=== PATIENT | male | born 1965 | race Caucasian/White ===

== ENCOUNTER 2018-05-10 09:14 | Emergency (ER) | payer OTHER ==
[2018-05-10] MEDS ORDERED: KETOROLAC 30 MG/ML INJ ONE (10:12)
[2018-05-10 10:33] LABS: Absolute Lymphocytes (CBC) 2.3 K/uL (0.7-4.9); Absolute Monocytes 0.4 K/uL (0.1-1.3); Absolute Neutrophil 6.7 K/uL (1.8-8.0); Basophils % 0.8 % (0-1.3); Eosinophils % 0.8 % (0-4.4); Hematocrit 44.2 % (39.6-49.0); Lymphocytes % 23.9 % (15.3-44.8); MCH 31.4 pg (27.0-35.0); MCV 88.6 fL (80-100); MPV 8.8 fL (7.6-11.3); Monocytes % 4.4 % (3.3-12.3); RBC Red Blood Cell Count 4.99 M/uL (4.33-5.43)
[2018-05-10 10:35] LABS: Urine Blood 3+ (NEG); Urine Glucose NEGATIVE (NEG); Urine Protein 2+ (NEG)
[2018-05-10 10:37] LABS: Albumin 3.9 g/dL (3.4-5.0); Bilirubin Direct 0.2 mg/dL (0-0.2); Bilirubin Total 0.5 mg/dL (0.2-1.0); Potassium 3.5 mmol/L (3.5-5.1); Protein, Total 7.3 g/dL (6.4-8.2)
--- NOTE | 2018-05-10 11:00 | RAD REPORT ---
EXAM DESCRIPTION: CT - Stone Protocol - 05/10/2018 10:43 am CLINICAL HISTORY: Abdominal pain. With nausea COMPARISON: None. TECHNIQUE: Computed axial tomography of the abdomen pelvis was obtained without oral or IV contrast. Lack of IV and oral contrast limits evaluation of solid organs, bowel, and vessels. Coronal reformat lopez images were obtained and reviewed. All CT scans are performed using dose optimization technique as appropriate and may include automated exposure control or mA/KV adjustment according to patient size. FINDINGS: Couple of tiny right renal calculi are present. A left renal calculus is not seen. Mild ri ght hydronephrosis is present. A calculus is present within the distal right ureter measuring 3 adam meters. The liver, spleen, pancreas and adrenals appear grossly normal There is no evidence of diverticulitis. The appendix appears normal Small umbilical hernia is seen. A small right inguinal hernia is present. IMPRESSION: 3 millimeter calculus distal right ureter resulting in mild right hydronephrosis
--- NOTE | 2018-05-10 11:30 | ER ---
Nurse's Notes [facility] Name: Aldo Gill Age: 53 yrs Sex: Male : 1965 Arrival Date: 05/10/2018 Time: 09:17 Bed 13 Private MD: Rick Montero Diagnosis: Hydronephrosis with renal and ureteral calculous obstruction;Renal calculus Presentation: 05/10 09:46 Presenting complaint: Patient states: pain started around 0530 this morning and has dm5 gotten worse. Pt reports nausea. Transition of care: patient was not received from another setting of care. Onset of symptoms was May 10, 2018. 09:46 Method Of Arrival: Ambulatory dm5 09:46 Acuity: RAQUEL 3 dm5 11:52 Risk Assessment: Do you want to hurt yourself or someone else? Patient reports no aj1 desire to harm self or others. Historical: - Allergies: 09:47 No Known Allergies; dm5 - Home Meds: 09:47 lisinopril 20 mg oral tab [Active]; dm5 - Ebola Screening: : Patient denies travel to an Ebola-affected area in the 21 days before illness onset. Screenin:00 Abuse screen: Denies threats or abuse. Denies injuries from another. Nutritional aj1 screening: No deficits noted. Tuberculosis screening: No symptoms or risk factors identified. Assessment: 10:00 General: Appears in no apparent distress. uncomfortable, Behavior is cooperative, aj1 restless. Pain: Complains of pain in right low back and right lower quadrant Pain currently is 10 out of 10 on a pain scale. Quality of pain is described as sharp. Neuro: Level of Consciousness is awake, alert, obeys commands. Cardiovascular: Patient's skin is warm and dry. Respiratory: Airway is patent Respiratory effort is even, unlabored, Respiratory pattern is regular, symmetrical. GI: Reports lower abdominal pain, nausea, Patient currently denies diarrhea, vomiting. : Reports burning with urination, inability to void, urinary frequency. EENT: No signs and/or symptoms were reported regarding the EENT system. Derm: Skin is intact, Skin is diaphoretic, Skin is pale. Musculoskeletal: No signs and/or symptoms reported regarding the musculoskeletal system. Circulation, motion, and sensation intact. Vital Signs: 09:47 BP 163 / 94; Pulse 50; Resp 20; Temp 97.1; Pulse Ox 100% on R/A; Weight 106.59 kg; dm5 Height 5 ft. 10 in. (177.80 cm); Pain 05/09; 09:47 Body Mass Index 33.72 (106.59 kg, 177.80 cm) dm5 ED Course: 09:17 Patient arrived in ED. as 09:18 Rick Montero MD is Private Physician. as 09:46 Triage completed. dm5 09:47 Arm band placed on left wrist. Patient placed in an exam room. dm5 09:56 Zuri Galvez, RN is Primary Nurse. aj1 10:00 Patient has correct armband on for positive identification. Bed in low position. Call aj1 light in reach. Side rails up X 1. 10:00 Notified ED physician of other patient complains of severe pain. Order received. aj1 10:00 No provider procedures requiring assistance completed. aj1 10:01 Foster Macias MD is Attending Physician. kdr 10:02 Inserted saline lock: 20 gauge in right forearm, using aseptic technique. Blood em1 collected. 10:30 X-ray completed. Portable x-ray completed in exam room. Patient tolerated procedure ml well. 10:41 CT completed. Patient tolerated procedure well. Patient moved to CT via wheelchair. Patient moved back from CT. 10:43 CT Stone Protocol In Process Unspecified. EDMS 11:27 Rick Montero MD is Referral Physician. kdr 11:28 Donnell Ng MD is Referral Physician. kdr 11:52 IV discontinued, intact, bleeding controlled, No redness/swelling at site. Pressure aj1 dressing applied. Administered Medications: 10:10 Drug: TORadol 30 mg Route: IVP; Site: right forearm; aj1 11:44 Follow up: Response: No adverse reaction aj1 11:33 Drug: Rocephin - (cefTRIAXone) 1 grams Route: IVPB; Infused Over: 30 mins; Site: right aj1 antecubital; 11:44 Follow up: IV Status: Completed infusion aj1 11:37 Drug: Floral 10 mg-325 mg 1 tabs Route: PO; aj1 11:44 Follow up: Response: No adverse reaction aj1 Outcome: 11:29 Discharge ordered by . kdr 11:52 Discharged to home ambulatory, with family. aj1 11:52 Condition: good 11:52 Discharge instructions given to patient, Instructed on discharge instructions, follow up and referral plans. no drinking with medication, no driving heavy equipment, medication usage, Demonstrated understanding of instructions, follow-up care, medications. 11:53 Patient left the ED. aj1 Signatures: Dispatcher [employer] EDMS Zuri Galvez RN RN aj1 Patricia Mckee RN RN dm5 Foster Macias MD MD kdr Jones, Aicha Rowell, Nancie Hill, Tiffany Rowell, Babak sahu
--- NOTE | 2018-05-10 11:30 | EDPHYS ---
Physician Documentation [facility] Name: Aldo Gill Age: 53 yrs Sex: Male : 1965 Arrival Date: 05/10/2018 Time: 09:17 Bed 13 Private MD: Rick Montero ED Physician Foster Macias HPI: 05/10 16:31 This 53 yrs old Male presents to ER via Ambulatory with complaints of Low kdr Back Pain, Urinary Problem. 16:31 The patient complains of pain in the right mid back. To right groin. Onset: The kdr symptoms/episode began/occurred suddenly, at 05:30. Modifying factors: The symptoms are alleviated by nothing. the symptoms are aggravated by movement, palpation/percussion. Associated signs and symptoms: Pertinent positives: hematuria, nausea, vomiting, Pertinent negatives: diarrhea, dizziness, dysuria, fever, urinary frequency. Severity of pain: At its worst the pain was severe incapacitating just prior to arrival, in the emergency department the pain has improved mildly. The patient has not experienced similar symptoms in the past. The patient has not recently seen a physician. Historical: - Allergies: 09:47 No Known Allergies; dm5 - Home Meds: 09:47 lisinopril 20 mg oral tab [Active]; dm5 - Ebola Screening: : Patient denies travel to an Ebola-affected area in the 21 days before illness onset. ROS: 16:31 Constitutional: Negative for fever, chills, and weight loss, Eyes: Negative for injury, kdr pain, redness, and discharge, ENT: Negative for injury, pain, and discharge, Neck: Negative for injury, pain, and swelling, Cardiovascular: Negative for chest pain, palpitations, and edema, Respiratory: Negative for shortness of breath, cough, wheezing, and pleuritic chest pain, Back: Negative for injury and pain, MS/Extremity: Negative for injury and deformity, Skin: Negative for injury, rash, and discoloration, Neuro: Negative for headache, weakness, numbness, tingling, and seizure activity. Psych: Negative for depression, anxiety, suicide ideation, homicidal ideation, and hallucinations, Allergy/Immunology: Negative for hives, rash, and allergies, Endocrine: Negative for neck swelling, polydipsia, polyuria, polyphagia, and marked weight changes, Hematologic/Lymphatic: Negative for swollen nodes, abnormal bleeding, and unusual bruising. 16:31 Abdomen/GI: Positive for abdominal pain, nausea and vomiting, Negative for 16:31 : Positive for urinary symptoms, Negative for Exam: 16:31 Constitutional: This is a well developed, well nourished patient who is awake, alert, kdr and in no acute distress. Head/Face: Normocephalic, atraumatic. Eyes: Pupils equal round and reactive to light, extra-ocular motions intact. Lids and lashes normal. Conjunctiva and sclera are non-icteric and not injected. Cornea within normal limits. Periorbital areas with no swelling, redness, or edema. Neck: Trachea midline, no thyromegaly or masses palpated, and no cervical lymphadenopathy. Supple, full range of motion without nuchal rigidity, or vertebral point tenderness. No Meningismus. Chest/axilla: Normal chest wall appearance and motion. Nontender with no deformity. No lesions are appreciated. Cardiovascular: Regular rate and rhythm with a normal S1 and S2. No gallops, murmurs, or rubs. Normal PMI, no JVD. No pulse deficits. Respiratory: Lungs have equal breath sounds bilaterally, clear to auscultation and percussion. No rales, rhonchi or wheezes noted. No increased work of breathing, no retractions or nasal flaring. Abdomen/GI: Soft, non-tender, with normal bowel sounds. No distension or tympany. No guarding or rebound. No evidence of tenderness throughout. Skin: Warm, dry with normal turgor. Normal color with no rashes, no lesions, and no evidence of cellulitis. MS/ Extremity: Pulses equal, no cyanosis. Neurovascular intact. Full, normal range of motion. Neuro: Awake and alert, GCS 15, oriented to person, place, time, and situation. Cranial nerves II-XII grossly intact. Motor strength 5/5 in all extremities. Sensory grossly intact. Cerebellar exam normal. Normal gait. Psych: Awake, alert, with orientation to person, place and time. Behavior, mood, and affect are within normal limits. 16:31 Back: pain, that is moderate, that is severe, of the right mid back, ROM is normal, CVA tenderness, that is severe, is noted on the right. Vital Signs: 09:47 BP 163 / 94; Pulse 50; Resp 20; Temp 97.1; Pulse Ox 100% on R/A; Weight 106.59 kg; dm5 Height 5 ft. 10 in. (177.80 cm); Pain 05/09; 09:47 Body Mass Index 33.72 (106.59 kg, 177.80 cm) dm5 MDM: 11:29 Patient medically screened. kdr 16:31 Data reviewed: vital signs, nurses notes, lab test result(s), radiologic studies. kdr Counseling: I had a detailed discussion with the patient and/or guardian regarding: the historical points, exam findings, and any diagnostic results supporting the discharge/admit diagnosis, lab results, radiology results, the need for outpatient follow up. 05/10 10:03 Order name: Urine Dipstick--Ancillary (enter results); Complete Time: 10:52 em1 05/10 10:07 Order name: Basic Metabolic Panel; Complete Time: 10:52 kdr 05/10 10:07 Order name: CBC with Diff; Complete Time: 10:52 kdr 05/10 10:07 Order name: Creatinine for Radiology; Complete Time: 10:52 kdr 05/10 10:07 Order name: Hepatic Function; Complete Time: 10:52 kdr 05/10 10:07 Order name: Lipase; Complete Time: 10:52 kdr 05/10 09:48 Order name: CT Stone Protocol; Complete Time: 11:22 dm5 05/10 10:03 Order name: Urine Dipstick-Ancillary (obtain specimen); Complete Time: 10:03 em1 05/10 10:07 Order name: IV Saline Lock; Complete Time: 10:09 kdr 05/10 10:07 Order name: Labs collected and sent; Complete Time: 10:27 kdr Administered Medications: 10:10 Drug: TORadol 30 mg Route: IVP; Site: right forearm; aj1 11:44 Follow up: Response: No adverse reaction aj1 11:33 Drug: Rocephin - (cefTRIAXone) 1 grams Route: IVPB; Infused Over: 30 mins; Site: right aj1 antecubital; 11:44 Follow up: IV Status: Completed infusion aj1 11:37 Drug: Lewis 10 mg-325 mg 1 tabs Route: PO; aj1 11:44 Follow up: Response: No adverse reaction aj1 Disposition: 05/10/18 11:29 Discharged to Home. Impression: Hydronephrosis with renal and ureteral calculous obstruction, Renal calculus. - Condition is Stable. - Discharge Instructions: Kidney Stones, [id number], Hydronephrosis. - Prescriptions for Tylenol- Codeine #3 300-30 mg Oral Tablet - take 2 tablets by ORAL route every 6 hours As needed; 15 tablet. Zofran 4 mg Oral Tablet - take 1 tablet by ORAL route every 12 hours As needed; 6 tablet. Flomax 0.4 mg Oral Capsule, Sust. Release 24 hr - take 1 capsule by ORAL route once daily 1/2 hour following the same meal each day; 15 capsule. Bactrim DS 800- 160 mg Oral Tablet - take 1 tablet by ORAL route every 12 hours for 3 days; 6 tablet. - Medication Reconciliation Form, Thank You Letter, Antibiotic Education, Prescription Opioid Use form. - Follow up: Rick Montero MD; When: 2 - 3 days; Reason: If symptoms return, Further diagnostic work-up, Recheck today's complaints, Continuance of care, Re-evaluation by your physician. Follow up: Donnell Ng MD; When: 1 - 2 days; Reason: If symptoms return, Further diagnostic work-up, Recheck today's complaints, Continuance of care, Re-evaluation by your physician. - Problem is new. - Symptoms have improved. Signatures: Dispatcher [employer] EDMS Zuri Galvez RN RN aj1 Patricia Mckee RN RN dm5 Foster Macias MD MD [facility] Babak Rowell1 Corrections: (The following items were deleted from the chart) 11:53 11:29 05/10/2018 11:29 Discharged to Home. Impression: Hydronephrosis with renal and aj1 ureteral calculous obstruction; Renal calculus. Condition is Stable. Forms are Medication Reconciliation Form, Thank You Letter, Antibiotic Education, Prescription Opioid Use. Follow up: Rick Montero; When: 2 - 3 days; Reason: If symptoms return, Further diagnostic work-up, Recheck today's complaints, Continuance of care, Re-evaluation by your physician. Follow up: Donnell Ng; When: 1 - 2 days; Reason: If symptoms return, Further diagnostic work-up, Recheck today's complaints, Continuance of care, Re-evaluation by your physician. Problem is new. Symptoms have improved. kdr
[2018-05-10] MEDS ORDERED: HYDROCODONE/APAP 10/325 TAB ONE (11:42)
== END 2018-05-10 11:53 | disposition home or self-care (01) ==
LOC: ER 09:14
DX: N13.2 Hydronephrosis with renal and ureteral calculous obstruction (principal)
CPT/HCPCS: 36415; 74176; 76377; 80048; 80076; 81003; 83690; 85025; 99284

== ENCOUNTER 2018-05-13 14:05 | Emergency (ER) | payer OTHER ==
[2018-05-13] MEDS ORDERED: MORPHINE 4 MG/ML SYR ONE (15:02)
[2018-05-13] MEDS ORDERED: NA CHLORIDE 0.9% 1,000 ML ONE (15:03)
[2018-05-13] MEDS ORDERED: ONDANSETRON 4 MG/2 ML VIAL ONE (15:03)
[2018-05-13 15:35] LABS: Absolute Lymphocytes (CBC) 1.5 K/uL (0.7-4.9); Absolute Monocytes 0.9 K/uL (0.1-1.3); Absolute Neutrophil 10.8 K/uL (1.8-8.0); Basophils % 0.5 % (0-1.3); Eosinophils % 0.1 % (0-4.4); Hematocrit 42.6 % (39.6-49.0); Lymphocytes % 11.1 % (15.3-44.8); MCH 30.7 pg (27.0-35.0); MCV 87.5 fL (80-100); MPV 8.6 fL (7.6-11.3); Monocytes % 6.8 % (3.3-12.3); RBC Red Blood Cell Count 4.86 M/uL (4.33-5.43)
--- NOTE | 2018-05-13 15:41 | RAD REPORT ---
EXAM DESCRIPTION: CT - Stone Protocol - 05/13/2018 3:19 pm CLINICAL HISTORY: Flank pain. FLANK PAIN COMPARISON: Stone Protocol dated 05/10/2018 TECHNIQUE: Axial images were obtained without oral or IV contrast. Lack of contrast limits solid org an and vascular assessment. The [id number] spans the entirety of the system partially obscuring uppermost abdomen and lung bases. Coronal reformatted images were obtained and reviewed. All CT scans are performed using dose optimization technique as appropriate and may include automated exposure control or mA/KV adjustment according to patient size. FINDINGS: The lower lung ko are clear. Tiny gallstone suspected. Imaged portions of the liver and spleen show no suspicious findings on non-contrast imaging. The panc reas and adrenal glands are normal. No pathologic lymphadenopathy in the abdomen or pelvis. 3 mm distal right ureter stone is again noted and has migrated to the right UVJ. Mild right hydroneph rosis persists. No bowel obstruction, free air, free fluid or abscess. Normal appendix noted. No significant bony abnormality. IMPRESSION: 3 mm distal right ureter stone has migrated to the right UVJ. Mild right hydronephrosis persists. Cholelithiasis.
[2018-05-13 15:47] LABS: Potassium 3.9 mmol/L (3.5-5.1)
[2018-05-13] MEDS ORDERED: KETOROLAC 30 MG/ML INJ ONE (16:04)
[2018-05-13] MEDS ORDERED: MAGNESIUM SULFATE 1 gm IVPB 1 GM/100 ML BAG IV ONE (16:08)
--- NOTE | 2018-05-13 16:38 | ER ---
Nurse's Notes [facility] Name: Aldo Gill Age: 53 yrs Sex: Male : 1965 Arrival Date: 05/13/2018 Time: 14:08 Bed 14 Private MD: Diagnosis: Calculus of kidney and ureter Presentation: 05/13 14:23 Presenting complaint: Patient states: 4 days ago, i was here and was diagnosed with hj kidney stones, they said it was 3mm but i havent noticed i passed it; now the pain is worse and the pain meds doesn't help; reports nausea;. Transition of care: patient was not received from another setting of care. Onset of symptoms was May 13, 2018. Risk Assessment: Do you want to hurt yourself or someone else? Patient reports no desire to harm self or others. Initial Sepsis Screen: Does the patient meet any 2 criteria? No. Patient's initial sepsis screen is negative. Does the patient have a suspected source of infection? No. Patient's initial sepsis screen is negative. Care prior to arrival: None. 14:23 Method Of Arrival: Ambulatory 14:23 Acuity: RAQUEL 3 hj Triage Assessment: 14:25 General: Appears in no apparent distress. uncomfortable, Behavior is calm, cooperative, hj appropriate for age. Pain: Complains of pain in R lower back. GI: Reports lower abdominal pain, nausea. Historical: - Allergies: 14:26 No Known Allergies; hj - Home Meds: 14:26 lisinopril 20 mg Oral tab [Active]; hj - PMHx: 14:26 Hypertension; hj - PSHx: 14:26 testicles; hj - Immunization history:: Adult Immunizations up to date. - Social history:: Smoking status: Patient/guardian denies using tobacco, Patient/guardian denies using alcohol. - Ebola Screening: : Patient negative for fever greater than or equal to 101.5 degrees Fahrenheit, and additional compatible Ebola Virus Disease symptoms Patient denies exposure to infectious person Patient denies travel to an Ebola-affected area in the 21 days before illness onset. Screenin:25 Abuse screen: Denies threats or abuse. Denies injuries from another. Nutritional hj screening: No deficits noted. Tuberculosis screening: No symptoms or risk factors identified. Fall Risk None identified. Assessment: 14:25 GI: Bowel sounds present X 4 quads. hj 15:09 General: Appears uncomfortable, Behavior is calm, cooperative. Pain: Complains of pain la1 in abdomen. Neuro: Level of Consciousness is awake, alert, obeys commands, Oriented to person, place, time, situation. Cardiovascular: Heart tones S1 S2 Capillary refill < 3 seconds Patient's skin is warm and dry. Respiratory: Airway is patent Respiratory effort is even, unlabored, Respiratory pattern is regular, symmetrical. GI: Reports nausea. : No signs and/or symptoms were reported regarding the genitourinary system. Vital Signs: 14:26 BP 145 / 104; Pulse 82; Resp 18; Temp 99.3(O); Pulse Ox 98% on R/A; Weight 106.59 kg; hj Height 5 ft. 9 in. (175.26 cm); 16:15 BP 136 / 86; Pulse 81; Resp 16; Pulse Ox 98% on R/A; la1 14:26 Body Mass Index 34.70 (106.59 kg, 175.26 cm) ED Course: 14:08 Patient arrived in ED. mr 14:25 Triage completed. hj 14:25 Arm band placed on left wrist. hj 14:26 Patient has correct armband on for positive identification. Placed in gown. Bed in low hj position. Call light in reach. Side rails up X 1. Adult w/ patient. 14:29 Ashley Hilliard FNP-C is PHCP. kb 14:29 Xavier Main MD is Attending Physician. kb 14:33 Ken Rivero RN is Primary Nurse. la1 15:10 Initial lab(s) drawn, by me, sent to lab. Inserted saline lock: 20 gauge in right upper sg arm, using aseptic technique. Blood collected. 15:18 CT completed. Patient tolerated procedure well. Patient moved to CT via wheelchair. kw1 Patient moved back from CT. 15:19 Stone Protocol In Process Unspecified. EDMS 16:47 No provider procedures requiring assistance completed. IV discontinued, intact, la1 bleeding controlled, No redness/swelling at site. Pressure dressing applied. Administered Medications: 15:11 Drug: Zofran 4 mg Route: IVP; Site: right antecubital; sg 16:47 Follow up: Response: No adverse reaction la1 15:11 Drug: NS 0.9% 1000 ml Route: IV; Rate: 1000 ml; Site: right antecubital; sg 16:48 Follow up: IV Status: Completed infusion la1 15:15 Drug: morphine 4 mg Route: IVP; Site: right upper arm; sg 16:47 Follow up: Response: No adverse reaction; Pain is decreased la1 16:00 Drug: TORadol 30 mg Route: IVP; Site: right antecubital; la1 16:46 Follow up: Response: No adverse reaction; Pain is decreased la1 16:04 Drug: Magnesium Sulfate 1 grams Route: IVPB; Infused Over: 30 mins; Site: right la1 antecubital; 16:47 Follow up: IV Status: Completed infusion la1 Outcome: 16:38 Discharge ordered by . holli 16:47 Discharged to home ambulatory. la1 16:47 Condition: stable 16:47 Discharge instructions given to patient, Instructed on discharge instructions, follow up and referral plans. medication usage, Demonstrated understanding of instructions, follow-up care, medications, Prescriptions given X 1. 16:48 Patient left the ED. la1 Signatures: Dispatcher [employer] EDMS Ashley Hilliard, [employer]ITE INSPECTOR-C BAKED AND GRAPHITE INSPECTOR-CkGeorge Calle, RN RN LouisJanelle mr Ken Rivero RN RN laVasiliy Perkins, ED WARD Caroline Morrison1 Corrections: (The following items were deleted from the chart) 14:28 14:26 Pulse 82bpm; Resp 18bpm; Pulse Ox 98% RA; Temp 99.3F Oral; 106.59 kg; Height 5 hj ft. 9 in.; BMI: 34.7; hj
--- NOTE | 2018-05-13 16:38 | EDPHYS ---
Physician Documentation [facility] Name: Aldo Gill Age: 53 yrs Sex: Male : 1965 Arrival Date: 05/13/2018 Time: 14:08 Bed 14 Private MD: ED Physician Xavier Main HPI: 05/13 16:36 This 53 yrs old Male presents to ER via Ambulatory with complaints of kb Possible Kidney Stone. 16:36 The patient complains of pain in the right flank. The pain radiates to the abdomen. kb 16:36 Onset: The symptoms/episode began/occurred yesterday. Modifying factors: The symptoms kb are alleviated by nothing. the symptoms are aggravated by palpation/percussion. Associated signs and symptoms: The patient has no apparent associated signs or symptoms. Severity of pain: At its worst the pain was severe in the emergency department the pain is unchanged. The patient has not experienced similar symptoms in the past. The patient has been recently seen at the [facility] Emergency Department, this week, for similar complaints labs were performed, CT scan was performed, was given a prescription for antibiotics, was given a prescription for pain medications, was given a prescription for an antiemetic. Pt reports he was diagnosed with a kidney stone 4 days ago, pain went away for a day, then came back yesterday. Pain worse today. Historical: - Allergies: 14:26 No Known Allergies; hj - Home Meds: 14:26 lisinopril 20 mg Oral tab [Active]; hj - PMHx: 14:26 Hypertension; hj - PSHx: 14:26 testicles; hj - Immunization history:: Adult Immunizations up to date. - Social history:: Smoking status: Patient/guardian denies using tobacco, Patient/guardian denies using alcohol. - Ebola Screening: : Patient negative for fever greater than or equal to 101.5 degrees Fahrenheit, and additional compatible Ebola Virus Disease symptoms Patient denies exposure to infectious person Patient denies travel to an Ebola-affected area in the 21 days before illness onset. ROS: 16:35 Constitutional: Negative for fever, chills, and weight loss, Cardiovascular: Negative kb for chest pain, palpitations, and edema, Respiratory: Negative for shortness of breath, cough, wheezing, and pleuritic chest pain, Abdomen/GI: Negative for abdominal pain, nausea, vomiting, diarrhea, and constipation, MS/Extremity: Negative for injury and deformity, Skin: Negative for injury, rash, and discoloration, Neuro: Negative for headache, weakness, numbness, tingling, and seizure. 16:35 : Positive for flank pain. Exam: 16:35 Constitutional: This is a well developed, well nourished patient who is awake, alert, kb and in no acute distress. Head/Face: Normocephalic, atraumatic. Chest/axilla: Normal chest wall appearance and motion. Nontender with no deformity. No lesions are appreciated. Cardiovascular: Regular rate and rhythm with a normal S1 and S2. No gallops, murmurs, or rubs. Normal PMI, no JVD. No pulse deficits. Respiratory: Lungs have equal breath sounds bilaterally, clear to auscultation and percussion. No rales, rhonchi or wheezes noted. No increased work of breathing, no retractions or nasal flaring. Abdomen/GI: Soft, non-tender, with normal bowel sounds. No distension or tympany. No guarding or rebound. No evidence of tenderness throughout. Skin: Warm, dry with normal turgor. Normal color with no rashes, no lesions, and no evidence of cellulitis. MS/ Extremity: Pulses equal, no cyanosis. Neurovascular intact. Full, normal range of motion. Neuro: Awake and alert, GCS 15, oriented to person, place, time, and situation. Cranial nerves II-XII grossly intact. Motor strength 5/5 in all extremities. Sensory grossly intact. Cerebellar exam normal. Normal gait. 16:35 Back: CVA tenderness, that is moderate, is noted on the right. Vital Signs: 14:26 BP 145 / 104; Pulse 82; Resp 18; Temp 99.3(O); Pulse Ox 98% on R/A; Weight 106.59 kg; hj Height 5 ft. 9 in. (175.26 cm); 16:15 BP 136 / 86; Pulse 81; Resp 16; Pulse Ox 98% on R/A; la1 14:26 Body Mass Index 34.70 (106.59 kg, 175.26 cm) MDM: 14:29 Patient medically screened. 16:34 Data reviewed: vital signs, nurses notes. Data interpreted: Pulse oximetry: on room air kb is 98 %. Interpretation: normal. Counseling: I had a detailed discussion with the patient and/or guardian regarding: the historical points, exam findings, and any diagnostic results supporting the discharge/admit diagnosis, lab results, radiology results, the need for outpatient follow up, a urologist, to return to the emergency department if symptoms worsen or persist or if there are any questions or concerns that arise at home. 05/13 14:47 Order name: CBC with Diff kb 05/13 14:47 Order name: Basic Metabolic Panel kb 05/13 15:02 Order name: Stone Protocol; Complete Time: 15:58 EDMS 05/13 15:14 Order name: CBC with Automated Diff; Complete Time: 15:39 EDMS 05/13 15:14 Order name: Basic Metabolic Panel; Complete Time: 15:58 EDMS 05/13 14:47 Order name: IV Saline Lock; Complete Time: 15:16 kb 05/13 14:47 Order name: Labs collected and sent; Complete Time: 15:16 kb Administered Medications: 15:11 Drug: Zofran 4 mg Route: IVP; Site: right antecubital; sg 16:47 Follow up: Response: No adverse reaction la1 15:11 Drug: NS 0.9% 1000 ml Route: IV; Rate: 1000 ml; Site: right antecubital; sg 16:48 Follow up: IV Status: Completed infusion la1 15:15 Drug: morphine 4 mg Route: IVP; Site: right upper arm; sg 16:47 Follow up: Response: No adverse reaction; Pain is decreased la1 16:00 Drug: TORadol 30 mg Route: IVP; Site: right antecubital; la1 16:46 Follow up: Response: No adverse reaction; Pain is decreased la1 16:04 Drug: Magnesium Sulfate 1 grams Route: IVPB; Infused Over: 30 mins; Site: right la1 antecubital; 16:47 Follow up: IV Status: Completed infusion la1 Disposition: 05/14 09:59 Co-signature as Attending Physician, Xavier Main MD. ma2 Disposition: 05/13/18 16:38 Discharged to Home. Impression: Calculus of kidney and ureter. - Condition is Stable. - Discharge Instructions: Kidney Stones, [id number], Dietary Guidelines to Help Prevent Kidney Stones. - Prescriptions for Colace 100 mg Oral Tablet - take 1 tablet by ORAL route every 12 hours; 14 tablet. - Medication Reconciliation Form, Thank You Letter, Antibiotic Education, Prescription Opioid Use form. - Follow up: Emergency Department; When: As needed; Reason: Worsening of condition. Follow up: Private Physician; When: 2 - 3 days; Reason: Recheck today's complaints, Continuance of care, Re-evaluation by your physician. Signatures: Dispatcher [employer] [facility] Ashley Hilliard, OSTEOPATHIC PHYSICIAN-C OSTEOPATHIC PHYSICIAN-George Meyers, RN RN sg Ken Rivero RN RN la1 Vasiliy Mtz RN RN hj Xavier Main MD MD ma2 Corrections: (The following items were deleted from the chart) 05/13 15:20 15:14 Stone Protocol+[email or web address] ordered. [facility] 16:48 16:38 05/13/2018 16:38 Discharged to Home. Impression: Calculus of kidney and ureter. la1 Condition is Stable. Forms are Medication Reconciliation Form, Thank You Letter, Antibiotic Education, Prescription Opioid Use. Follow up: Emergency Department; When: As needed; Reason: Worsening of condition. Follow up: Private Physician; When: 2 - 3 days; Reason: Recheck today's complaints, Continuance of care, Re-evaluation by your physician. kb
== END 2018-05-13 16:48 | disposition home or self-care (01) ==
LOC: ER 14:05
DX: N20.2 Calculus of kidney with calculus of ureter (principal); I10 Essential (primary) hypertension
CPT/HCPCS: 36415; 74176; 76377; 80048; 85025; 99284; J2405; J3475; J7030